=== PATIENT | female | born 1985 | race Caucasian/White ===

== ENCOUNTER 2017-02-12 09:40 | Emergency (ER) | payer BC ==
--- NOTE | 2017-02-12 11:13 | UC ---
Throat Pain/Nasal Loy HPI - HPI Summary HPI Summary: ONSET OF FEVER 101.4 YESTERDAY ALONG WITH CHILLS, FATIGUE, DIZZINESS, BODY ACHES AND OVERALL MALAISE. HAS ST AND PAIN WITH SWALLOWING. OF NOTE HAD SPONTANEOUS MISCARRIAGE 11 DAYS AGO AND IS STILL HAVING ABDOMINAL CRAMPING AND SPOTTING. SERUM HCG WAS DRAWN INITIALLY TO DETERMINE DOWNWARD TREND BUT WAS NOT FOLLOWED TO ZERO. - History of Current Complaint Chief Complaint: UCGeneralIllness Stated Complaint: FEVER SINUS ISSUE Time Seen by Provider: 02/12/17 10:46 Hx Obtained From: Patient Hx Last Menstrual Period: 01/08/17 Onset/Duration: Gradual Onset, Lasting Days, Still Present Severity: Moderate Pain Intensity: 9 Pain Scale Used: 0-10 Numeric Cough: None Associated Signs & Symptoms: Positive: Fever - Allergies/Home Medications Allergies/Adverse Reactions: Allergies Allergy/AdvReac Type Severity Reaction Status Date / Time Acetaminophen [From Vicodin] Allergy Unknown Verified 03/19/16 06:32 Reaction Details Azithromycin Allergy Unknown Verified 03/19/16 06:32 [From Zithromax Z-Ambrocio] Reaction Details Hydrocodone [From Vicodin] Allergy Unknown Verified 03/19/16 06:32 Reaction Details PMH/Surg Hx/FS Hx/Imm Hx Endocrine History Of: Denies: Diabetes, Thyroid Disease Cardiovascular History Of: Denies: Cardiac Disorders, Hypertension Respiratory History Of: Denies: COPD, Asthma GI/ History Of: Denies: Ulcer Psychological History Of: Reports: Anxiety - NO MEDS - Surgical History Surgical History: Yes Surgery Procedure, Year, and Place: C SECTION X2, 2010, 2012, [facility]. SINUS , 12/2015, [facility]. WISDOM TEETH 2009 r knee scoped - Family History Known Family History: Positive: Hypertension - Social History Alcohol Use: None Substance Use Type: None Smoking Status (MU): Never Smoked Tobacco Have You Smoked in the Last Year: No Review of Systems Constitutional: Fever, Chills, Fatigue ENT: Sore Throat Respiratory: Negative Cardiovascular: Negative Gastrointestinal: Abdominal Pain Genitourinary: Other - VAGINAL SPOTTING Neurological: Other - DIZZY All Other Systems Reviewed And Are Negative: Yes Physical Exam Triage Information Reviewed: Yes Appearance: No Pain Distress, Well-Nourished, Ill-Appearing - MILDLY Vital Signs: Initial Vital Signs Temp 98.7 F 02/12/17 09:51 Pulse 100 02/12/17 09:51 Resp 18 02/12/17 09:51 BP 120/64 02/12/17 09:51 Pulse Ox 100 02/12/17 09:51 Eyes: Positive: Conjunctiva Clear ENT: Positive: Hearing grossly normal, Pharyngeal erythema, TMs normal Neck: Positive: Supple, Tenderness @ - SPFL CERVICAL LAD, Enlarged Nodes @ - SPFL CERVICAL LAD Respiratory Exam: Normal Cardiovascular: Positive: Tachycardia Abdomen Description: Positive: Soft, Other: - DIFFUSE MILD TENDERNESS. NO REBOUND OR RIGIDITY Musculoskeletal: Positive: No Edema Neurological: Positive: Alert Psychological: Positive: Age Appropriate Behavior Skin: Negative: rashes Diagnostics - Laboratory Diagnostic Studies Completed/Ordered: RAPID STREP POSITIVE - Radiology TRANSVAGINAL US Xray Interpretation: Positive (See Comments) - SMALL AMOUNT OF FLUID IN THE ENDOMETRIAL CAVITY. 1.9 CM LEFT OVARIAN CYST. Radiology Interpretation Completed By: Radiologist Throat Pain/Nasal Course/Dx - Differential Dx/Diagnosis Provider Diagnoses: STREP PHARYNGITIS Discharge - Discharge Plan Condition: Stable Disposition: HOME Prescriptions: Amoxicillin CAP* [Amoxicillin 500 MG CAP*] 1,000 mg PO Q12H #38 cap Patient Education Materials: Strep Throat (ED) Referrals: Moy Wilder DO [Primary Care Provider] - If Needed Additional Instructions: US SHOWED SMALL AMOUNT OF FLUID IN THE ENDOMETRIAL CAVITY AND A 1.9 CM LEFT OVARIAN CYST. NO ACUTE INTERVENTION REQUIRED AT PRESENT. RAPID STREP POSITIVE. TAKE AMOXICILLIN FOR THE FULL 10 DAYS. OTC CHLORASEPTIC OR CEPACOL LOZENGES FOR SORE THROAT NEEDED ONCE SYMPTOMS RESOLVED - NEW TOOTHBRUSH DO NOT SHARE FOOD, DRINK, UTENSILS
[2017-02-12] MEDS ORDERED: Amoxicillin CAP* 500 MG PO ONE (11:24)
[2017-02-12 12:00] VITALS: BP 112/71
--- NOTE | 2017-02-12 12:17 | RAD ---
INDICATION: Recent miscarriage. Fever and cramps. COMPARISON: Transvaginal sonogram October 31, 2016 TECHNIQUE: Longitudinal and transverse transvaginal scans of the pelvis were obtained. FINDINGS: Uterus: The uterus is normal in size. There are no focal masses. The uterus measures 9.5 x 4.0 x 5.4 cm. Endometrial thickness: The endometrial thickness is measured at 0.6 cm. There is a small amount of fluid in the endometrial cavity.. Free fluid: There is no significant free fluid . Ovaries: The ovaries are normal in size. The right ovary measures 2.8 x 1.7 x 3.4 cm. The left ovary measures 3.7 x 1.9 x 3.1 cm. There are multiple small follicles in each ovary with a dominant 1.7 cm cyst which is likely a functional cyst Doppler interrogation demonstrates flow to each ovary. Other: None IMPRESSION: SMALL AMOUNT OF FLUID IN THE ENDOMETRIAL CAVITY. 1.9 CM LEFT OVARIAN CYST.
== END 2017-02-12 12:56 | disposition home or self-care (01) ==
LOC: UCEAST 09:40
DX: J02.0 Streptococcal pharyngitis (principal); N83.202 Unspecified ovarian cyst, left side; Z32.02 Encounter for pregnancy test, result negative; F41.9 Anxiety disorder, unspecified; Z88.6 Allergy status to analgesic agent; Z88.1 Allergy status to other antibiotic agents; Z88.5 Allergy status to narcotic agent
CPT/HCPCS: 76830; 84702; 87651; 99212; A9270-GY; G0463

== ENCOUNTER → 2017-06-21 19:36 | Emergency (ER) | payer BC ==
[2017-06-21 20:10] LABS: Hematocrit 38 % (35-47); Hemoglobin 12.6 g/dl (12.0-16.0); Mean Corpuscular HGB Conc 34 g/dl (31-36); Mean Corpuscular Hemoglobin 29 pg (27-31); Mean Corpuscular Volume 85 fL (80-97); Mean Platelet Volume 8 um3 (7.4-10.4); Red Cell Distribution Width 12 % (10.5-15); White Blood Count 7.5 10^3/ul (3.5-10.8)
[2017-06-21 20:23] LABS: Albumin 4.5 g/dL (3.2-5.2); BUN/Creatinine Ratio 11.6 (8-20); Calcium 9.7 mg/dL (8.6-10.3); EGFR African American 128.5 (>60); EGFR Non-African American 99.9 (>60); Globulin 3.3 g/dL (2-4); Potassium 3.8 mmol/L (3.5-5.0); Total Bilirubin 0.4 mg/dL (0.2-1.0); Total Protein 7.8 g/dL (6.4-8.9)
[2017-06-21 20:33] LABS: Urine Bacteria 1+ (Absent); Urine Bilirubin Negative (Negative); Urine Glucose Negative (Negative); Urine Nitrite Negative (Negative)
--- NOTE | 2017-06-21 21:33 | RAD ---
INDICATION: Early with pain COMPARISON: None TECHNIQUE: Transvaginal scans were obtained of the bursa evaluation FINDINGS: There is endometrial reactive change with an oval hypoechoic structure which could represent a very early gestational sac or this could represent a pseudogestational sac. There is no evidence of a yolk sac and there is no pole. The right ovary measures 3.8 x 2.4 x 2.7 cm and contains multiple small follicles in addition to a probable complex exophytic follicle measuring 1.2 cm. The left ovary measures 4.2 x 3.0 x 2.5 cm. Medial to the left ovary is a complex mass measuring 2.0 x 2.2 x 1.3 cm. This could represent an ectopic . There is no significant vascularity and there is no significant free fluid IMPRESSION: NO DEFINITIVE INTRAUTERINE GESTATION. THE IMAGING FINDINGS MUST BE CORRELATED WITH THE CLINICAL PRESENTATION AND WITH THE SERIAL BETA-HCG VALUES. THE SONOGRAPHIC FINDINGS ARE TECHNICALLY INDETERMINANT YET ARE SUSPICIOUS FOR A 2 CM ECTOPIC INFERIOR AND MEDIAL TO THE LEFT OVARY. SUGGEST OBSTETRIC REFERRAL. Findings discussed with emergency department
[2017-06-21 22:41] VITALS: BP 113/66
--- NOTE | 2017-06-22 10:42 | ED ---
Radha Mccoy Thomas, scribed for Nicole Tobias MD on 06/21/17 at 1956 . GI/ HPI - HPI Summary HPI Summary: The pt is a 31 y/o F presenting to the ED c/o lower abd pressure and bleeding that started today at 17:30. This lower abd pressure is aggravated by sitting down. She notes a pressure sensation when she urinates. She has used one pad today since the bleeding started. She had a positive home test about two weeks ago. [facility] 05/12/17. G=4, P=2, A=1. She had two normal pregnancies with caesarean delivery and one early miscarriage. She had heavy vaginal bleeding six days ago and saw her doctor of nurse anesthesia five days ago. Her HCG measured five days ago was 98 and measured three days ago was in the 200s (it had doubled). The bleeding was red six days ago and it was light brown between three and five days ago. She states she did not pass any "tissue". She had an US performed yesterday that did not show an IUP, but the study was limited by low HCG levels. Pt denies hematuria, N/V. She is on vitamins and probiotic. She stopped taking magnesium when she found out she was . She says she is probably Rh+. - History of Current Complaint Chief Complaint: EDOBProblems Time Seen by Provider: 06/21/17 19:50 Stated Complaint: 5 WKS PREG/SHARP PELVIC PAIN/BLEEDING Hx Obtained From: Patient Hx Last Menstrual Period: 01/08/17 Onset/Duration: Started Hours Ago - onset today at 17:30., Atraumatic, Still Present Timing: Constant, Lasting Hours Severity: Moderate Current Severity: Mild Vaginal Bleeding Description: Brownish-Red Number of Pads per Hour: 0 - less than one Pain Intensity: 0 Location of Pain: RLQ, LLQ, Suprapubic Additional Location for Females: Uterus Pain Characteristics: Pressure - She has a pressure sensation in her lower abd Associated Signs and Symptoms: Positive: Other: - Pressure sensation when she urinates; NEGATIVE: hematuria. Negative: Nausea, Vomiting, Fever Additional Signs & Symptoms: Positive: Positive Test Aggravating Factor(s): Voiding - when she voids, she notes a pressure sensation , Sitting - sitting aggravates her lower abd pressure Alleviating Factor(s): Nothing - Allergy/Home Medications Allergies/Adverse Reactions: Allergies Allergy/AdvReac Type Severity Reaction Status Date / Time Acetaminophen [From Vicodin] Allergy Unknown Verified 03/19/16 06:32 Reaction Details Azithromycin Allergy Unknown Verified 03/19/16 06:32 [From Zithromax Z-Ambrocio] Reaction Details Hydrocodone [From Vicodin] Allergy Unknown Verified 03/19/16 06:32 Reaction Details PMH/Surg Hx/FS Hx/Imm Hx Previously Healthy: No Endocrine/Hematology History: Denies: Hx Diabetes, Hx Thyroid Disease Cardiovascular History: Denies: Hx Hypertension, Other Cardiovascular Problems/Disorders Respiratory History: Denies: Hx Asthma, Hx Chronic Obstructive Pulmonary Disease (COPD), Other Respiratory Problems/Disorders GI History: Reports: Hx Gastroesophageal Reflux Disease, Hx Hiatal Hernia Denies: Hx Ulcer, Other GI Disorders Musculoskeletal History: Denies: Other Musculoskeletal History Sensory History: Denies: Hx Contacts or Glasses, Hx Hearing Aid Opthamlomology History: Denies: Hx Contacts or Glasses Neurological History: Denies: Other Neuro Impairments/Disorders Psychiatric History: Reports: Hx Anxiety - NO MEDS - Surgical History Surgery Procedure, Year, and Place: C SECTION X2, 2010, 2012, [facility] SINUS , 12/2015, [facility]. WISDOM TEETH 2009 r knee scoped Hx Anesthesia Reactions: No Infectious Disease History: No Infectious Disease History: Denies: Hx Clostridium Difficile, Hx Hepatitis, Hx Human Immunodeficiency Virus (HIV), Hx of Known/Suspected MRSA, Hx Shingles, Hx Tuberculosis, Hx Known/ Suspected VRE, Hx Known/Suspected VRSA, History Other Infectious Disease, Traveled Outside the in Last 30 Days - Family History Known Family History: Positive: Hypertension, Other - Lung cancer - Social History Lives: With Family Alcohol Use: None Hx Substance Use: No Substance Use Type: Reports: None Hx Tobacco Use: No Smoking Status (MU): Never Smoked Tobacco Have You Smoked in the Last Year: No Review of Systems Constitutional: Negative Cardiovascular: Negative Respiratory: Negative Positive: Other - Lower abd pressure. Negative: Vomiting, Nausea Positive: other - Vaginal bleeding onset today at 17:30, pressure sensation when urinates. Negative: hematuria Neurological: Negative Psychological: Normal All Other Systems Reviewed And Are Negative: Yes Physical Exam Triage Information Reviewed: Yes Vital Signs On Initial Exam: Initial Vitals Temp Pulse Resp BP Pulse Ox 97.9 F 91 18 141/88 100 09/30/17 19:38 06/21/17 19:38 06/21/17 19:38 06/21/17 19:38 06/21/17 19:38 Vital Signs Reviewed: Yes Appearance: Positive: Well-Appearing, No Pain Distress - She presents to ED for vaginal bleeding but no pain, only low abd pressure., Well-Nourished Skin: Positive: Warm, Skin Color Reflects Adequate Perfusion Head/Face: Positive: Normal Head/Face Inspection Eyes: Positive: Conjunctiva Clear ENT: Positive: Normal ENT inspection Neck: Positive: Supple Respiratory/Lung Sounds: Positive: Clear to Auscultation, Breath Sounds Present , Other - No respiratory distress Cardiovascular: Positive: RRR, Pulses are Symmetrical in both Upper and Lower Extremities, Other - Brisk cap refill. Negative: Murmur, Rub Abdomen Description: Positive: Nontender, Soft Bowel Sounds: Positive: Present Pelvic Exam: Positive: external exam normal, no masses, blood - There is a small amount of brown red vaginal blood, other - Cervix is long as closed. Cultures were sent. Uterus is approximately 6 weeks in size by palpation, just palpable above pelvic brim. No adnexal mass palpated.. Negative: mass, tender adnexa Musculoskeletal: Positive: Strength/ROM Intact Neurological: Positive: Sensory/Motor Intact, Alert, Oriented to Person Place, Time, Facial Symmetry, Speech Normal Psychiatric: Positive: Normal Diagnostics - Vital Signs Vital Signs Temp Pulse Resp BP Pulse Ox 06/21/17 19:38 97.9 F 91 18 141/88 100 - Laboratory Lab Results: Lab Results 06/21/17 06/21/17 06/21/17 Range/Units 19:58 19:58 19:58 WBC 7.5 (3.5-10.8) 10^3/ul RBC 4.40 (4.0-5.4) 10^6/ul Hgb 12.6 (12.0-16.0) g/dl Hct 38 (35-47) % MCV 85 (80-97) fL MCH 29 (27-31) pg MCHC 34 (31-36) g/dl RDW 12 (10.5-15) % Plt Count 235 (150-450) 10^3/ul MPV 8 (7.4-10.4) um3 Neut % (Auto) 61.9 (38-83) % Lymph % (Auto) 28.8 (25-47) % [place] % (Auto) 8.1 (1-9) % Eos % (Auto) 0.7 (0-6) % Baso % (Auto) 0.5 (0-2) % Absolute Neuts (auto) 4.7 (1.5-7.7) 10^3/ul Absolute Lymphs (auto) 2.2 (1.0-4.8) 10^3/ul Absolute Monos (auto) 0.6 (0-0.8) 10^3/ul Absolute Eos (auto) 0.1 (0-0.6) 10^3/ul Absolute Basos (auto) 0 (0-0.2) 10^3/ul Absolute Nucleated RBC 0 10^3/ul Nucleated RBC % 0 INR (Anticoag Therapy) 1.00 (0.89-1.11) APTT 29.7 (26.0-36.3) seconds Sodium 136 (133-145) mmol/L Potassium 3.8 (3.5-5.0) mmol/L Chloride 102 (101-111) mmol/L Carbon Dioxide 28 (22-32) mmol/L Anion Gap 6 (2-11) mmol/L BUN 8 (6-24) mg/dL Creatinine 0.69 (0.51-0.95) mg/dL Est GFR ( Amer) 128.5 (>60) Est GFR (Non-Af Amer) 99.9 (>60) BUN/Creatinine Ratio 11.6 (8-20) Glucose 96 (70-100) mg/dL Lactic Acid (0.5-2.0) mmol/L Calcium 9.7 (8.6-10.3) mg/dL Total Bilirubin 0.40 (0.2-1.0) mg/dL AST 14 (13-39) U/L ALT 8 (7-52) U/L Alkaline Phosphatase 33 L (34-104) U/L Total Protein 7.8 (6.4-8.9) g/dL Albumin 4.5 (3.2-5.2) g/dL Globulin 3.3 (2-4) g/dL Albumin/Globulin Ratio 1.4 (1-3) Beta HCG, Quant 385.17 mIU/mL Urine Color Urine Appearance Urine pH (5-9) Ur Specific [place] (1.010-1.030) Urine Protein (Negative) Urine Ketones (Negative) Urine Blood (Negative) Urine Nitrate (Negative) Urine Bilirubin (Negative) Urine Urobilinogen (Negative) Ur Leukocyte Esterase (Negative) Urine WBC (Auto) (Absent) Urine RBC (Auto) (Absent) Ur Squamous Epith Cells (Absent) Urine Bacteria (Absent) Urine Glucose (Negative) Blood Type Antibody Screen 06/21/17 06/21/17 06/21/17 Range/Units 19:58 19:58 20:17 WBC (3.5-10.8) 10^3/ul RBC (4.0-5.4) 10^6/ul Hgb (12.0-16.0) g/dl Hct (35-47) % MCV (80-97) fL MCH (27-31) pg MCHC (31-36) g/dl RDW (10.5-15) % Plt Count (150-450) 10^3/ul MPV (7.4-10.4) um3 Neut % (Auto) (38-83) % Lymph % (Auto) (25-47) % [place] % (Auto) (1-9) % Eos % (Auto) (0-6) % Baso % (Auto) (0-2) % Absolute Neuts (auto) (1.5-7.7) 10^3/ul Absolute Lymphs (auto) (1.0-4.8) 10^3/ul Absolute Monos (auto) (0-0.8) 10^3/ul Absolute Eos (auto) (0-0.6) 10^3/ul Absolute Basos (auto) (0-0.2) 10^3/ul Absolute Nucleated RBC 10^3/ul Nucleated RBC % INR (Anticoag Therapy) (0.89-1.11) APTT (26.0-36.3) seconds Sodium (133-145) mmol/L Potassium (3.5-5.0) mmol/L Chloride (101-111) mmol/L Carbon Dioxide (22-32) mmol/L Anion Gap (2-11) mmol/L BUN (6-24) mg/dL Creatinine (0.51-0.95) mg/dL Est GFR ( Amer) (>60) Est GFR (Non-Af Amer) (>60) BUN/Creatinine Ratio (8-20) Glucose (70-100) mg/dL Lactic Acid 0.9 (0.5-2.0) mmol/L Calcium (8.6-10.3) mg/dL Total Bilirubin (0.2-1.0) mg/dL AST (13-39) U/L ALT (7-52) U/L Alkaline Phosphatase (34-104) U/L Total Protein (6.4-8.9) g/dL Albumin (3.2-5.2) g/dL Globulin (2-4) g/dL Albumin/Globulin Ratio (1-3) Beta HCG, Quant mIU/mL Urine Color Yellow Urine Appearance Cloudy Urine pH 6.0 (5-9) Ur Specific [place] 1.015 (1.010-1.030) Urine Protein Negative (Negative) Urine Ketones Negative (Negative) Urine Blood 3+ H (Negative) Urine Nitrate Negative (Negative) Urine Bilirubin Negative (Negative) Urine Urobilinogen Negative (Negative) Ur Leukocyte Esterase 1+ H (Negative) Urine WBC (Auto) 1+(6-10/hpf) H (Absent) Urine RBC (Auto) Trace(0-2/hpf) (Absent) Ur Squamous Epith Cells Present H (Absent) Urine Bacteria 1+ H (Absent) Urine Glucose Negative (Negative) Blood Type A Positive Antibody Screen Negative Result Diagrams: 06/21/17 19:58 06/21/17 19:58 Lab Statement: Any lab studies that have been ordered have been reviewed, and results considered in the medical decision making process. - Additional Comments Diagnostic Additional Comments: US Transvaginal. Interpreted by radiologist. Impression: NO DEFINITIVE INTRAUTERINE GESTATION. THE IMAGING FINDINGS MUST BE CORRELATED WITH THE CLINICAL PRESENTATION AND WITH THE SERIAL BETA-HCG VALUES. THE SONOGRAPHIC FINDINGS ARE TECHNICALLY INDETERMINANT YET ARE SUSPICIOUS FOR A 2 CM ECTOPIC INFERIOR AND MEDIAL TO THE LEFT OVARY. SUGGEST OBSTETRIC REFERRAL. ED physician has read this report and agrees. Re-Evaluation - Re-Evaluation First Eval Re-Evaluation Time: 22:18 Change: Unchanged Comment: At re-evaluation at 22:18, there is still diffuse lower abd pain described as cramping. There is no increase in bleeding. Second Eval Re-Evaluation Time: 22:36 Change: Unchanged Comment: I returned to the patient's room to perform a pelvic exam as outlined in the physical exam. Third Eval Re-Evaluation Time: 22:43 Change: Unchanged Comment: Blood pressure is now at 113/66. GIGU Course/Dx - Course Course Of Treatment: Allergies noted. High blood pressure noted that returned to normal level without treatment during ED course. Patients medications reviewed this visit. Assessment/Plan: The patient is a 31 y/o F with LNMP 05/12/17 presenting with lower abd pressure and vaginal bleeding. At re-evaluation at 22:18, there is still diffuse lower abd pain described as cramping. There is no increase in bleeding. The patient is a 31 y/o F with LNMP 05/12/17 presenting with lower abd pressure and vaginal bleeding. At re-evaluation at 22:18, there is still diffuse lower abd pain described as cramping. There is no increase in bleeding. In the ED, Bloodwork was obtained. BHCG is 385. UA shows 3+ blood, 1+ leukocyte esterase, 1+ WBC, and 1+ bacteria. US Transvaginal shows NO DEFINITIVE INTRAUTERINE GESTATION. THE IMAGING FINDINGS MUST BE CORRELATED WITH THE CLINICAL PRESENTATION AND WITH THE SERIAL BETA-HCG VALUES. THE SONOGRAPHIC FINDINGS ARE TECHNICALLY INDETERMINANT YET ARE SUSPICIOUS FOR A 2 CM ECTOPIC INFERIOR AND MEDIAL TO THE LEFT OVARY. SUGGEST OBSTETRIC REFERRAL. ED physician has reviewed this report and agrees. Patients medication reviewed this visit. Blood pressure noted. I consulted at 21:[address] Antonio, radiology, who informs me that he cannot exclude ectopic . I consulted with CHRISTIN Matute, at 21:30 regarding patient care. Discharge blood pressure was 113/66. Patient will be discharged with close follow up by OB on 06/23/17. Pt is agreeable with this plan. - Diagnoses Differential Diagnoses - Female: Ectopic , , Threatened , Urinary Tract Infection Provider Diagnoses: Vaginal bleeding in patient at less than 20 weeks gestation - Physician Notifications Discussed Care Of Patient With: David Antonio Time Discussed With Above Provider: 21:25 Instructed by Provider To: Other - I consulted at 21:[address] Antonio, radiology, who informs me that he cannot exclude ectopic . I consulted with CHRISTIN Matute, at 21:30 regarding patient care, who tells me that the patient can be safely discharged with close follow up on June 23. Discharge - Discharge Plan Condition: Stable Disposition: HOME Patient Education Materials: Ectopic (ED), First Trimester Vaginal Bleed (ED) Referrals: Moy Wilder DO [Primary Care Provider] - Additional Instructions: CLOSE FOLLOW UP WITH OBGYN ON FridayJUNE 23 to monitor for possible ectopic . We gave you a copy of your labs and ultrasound report from [facility]. Return to the emergency department for any new or worsening symptoms. The documentation as recorded by the Radha galvan Thomas accurately reflects the service I personally performed and the decisions made by me, Nicole Tobias MD.
== END | disposition home or self-care (01) ==
LOC: ED 19:36
DX: O46.92 Antepartum hemorrhage, unspecified, second trimester (principal); Z3A.20 20 weeks gestation of pregnancy; R10.30 Lower abdominal pain, unspecified
CPT/HCPCS: 36415; 76817; 80053; 81003; 81015; 83605; 84702; 85025; 85610; 85730; 86850; 86900; 86901; 87086; 87480; 87491; 87510; 87591; 99282

== ENCOUNTER 2018-08-06 06:13 | Inpatient (IN) | payer BC ==
[~2018-08-06 06:13] MED LIST: ceFOXitin 2 GM IVPREMIX* 2 GM/50 ML BAG IVPB SCH
[2018-08-06] MEDS ORDERED: OXYTOCIN* 10 UNITS/ML 1 ML VIAL ONE (07:56)
[2018-08-06] MEDS ORDERED: Ketorolac INJ* 30 MG/ML 1 ML VIAL ONE (07:56)
[2018-08-06] MEDS ORDERED: Ondansetron INJ* 2 MG/ML VIAL ONE (07:56)
[2018-08-06] MEDS ORDERED: Bupivacaine-MPF SPINAL* 7.5 MG/ML - 2ML AMP ONE (07:59)
[2018-08-06] MEDS ORDERED: Lidocaine 2% PF * 5 ML VIAL ONE (07:59)
[2018-08-06] MEDS ORDERED: HYDROmorphone INJ1* 1 MG/ML SYRINGE IV PRN (08:09)
[2018-08-06] MEDS ORDERED: DiMENhydriNATE IV* 50 MG/ML VIAL IV PUSH PRN (08:09)
[2018-08-06] MEDS ORDERED: Acetaminophen IV 1GM/100ML * 1,000 MG/100 ML VIAL IVPB ONE (08:09)
[2018-08-06] MEDS ORDERED: Naloxone* 0.4 MG/ML 1 ML VIAL IV PRN (08:09)
[2018-08-06] MEDS ORDERED: Dibucaine 1% 28.35 GM TUBE PR PRN (12:25)
[2018-08-06] MEDS ORDERED: Zolpidem TAB* 5 MG PO PRN (12:25)
[2018-08-06] MEDS ORDERED: Witch Hazel PAD* JAR TOPICAL PRN (12:25)
[2018-08-06] MEDS ORDERED: Glycerin ADULT SUPP PR PRN (12:25)
[2018-08-06] MEDS ORDERED: oxyCODONE/Acetamin 5/325 MG* TAB PO PRN (12:25)
[2018-08-06] MEDS ORDERED: Acetaminophen TAB* 325 MG PO PRN (12:25)
[2018-08-06] MEDS ORDERED: oxyCODONE TAB* 5 MG TAB PO ONE (12:40)
[2018-08-06] MEDS: Simethicone TAB* 80 MG TAB.CHEW PO SCH ×3 (12:50→20:56)
[2018-08-06] MEDS: Docusate CAP* 100 MG PO SCH ×2 (13:40→20:56)
[2018-08-06] MEDS: Ibuprofen TAB* 600 MG PO PRN ×2 (15:34→22:26)
[2018-08-06] MEDS: oxyCODONE/Acetamin 5/325 MG* TAB PO PRN ×2 (16:35→20:56)
[2018-08-07] MEDS: Ibuprofen TAB* 600 MG PO PRN ×3 (04:26→18:49)
[2018-08-07] MEDS: oxyCODONE/Acetamin 5/325 MG* TAB PO PRN ×5 (04:27→23:31)
--- NOTE | 2018-08-07 05:34 | OP ---
DATE OF OPERATION: 08/06/18 - ROOM #116 DATE OF : 87 SURGEON: Adelaide Myers MD CELL POURER: Dr. Lillie Barillas. ANESTHESIOLOGIST: Dr. Mendoza. ANESTHESIA: Spinal. PRE-OP DIAGNOSIS: A 39 and 0/7 weeks intrauterine , desires repeat section. POST-OP DIAGNOSIS: A 39 and 0/7 weeks intrauterine , desires repeat section, delivered. OPERATIVE PROCEDURE: Repeat low transverse section. ESTIMATED BLOOD LOSS: 500 cc. URINE OUTPUT: 500 cc. FLUIDS: 1600 cc of crystalloid. SPECIMEN: None. DRAINS: Zero. FINDINGS: Revealed a vertex female infant with Apgars 9 at 1 minute, 9 at 5 minutes, 8 pounds 7 ounces, normal-appearing tubes and ovaries bilaterally, normal- appearing three-vessel cord and placenta, manual, intact. COMPLICATIONS: None apparent. DISPOSITION: Stable to recovery room. DESCRIPTION OF PROCEDURE: The patient was placed in dorsal lithotomy position. Abdomen was prepped and draped in a sterile standard fashion. The patient was identified with universal protocol. Anesthesia was tested to appropriate level. An incision was made with a scalpel 2 fingerbreadths above the pubic symphysis. This was carried through down to the fascia. The fascia was scored in the midline and then extended laterally and superiorly using curved Barksdale scissors. The rectus muscle was with blunt and sharp dissection from the rectus fascia. The peritoneum was then entered bluntly. The lower uterine segment was identified. Bladder blade was inserted and the lower uterine segment was tented up with Allis. Incision was made down through to the membrane. The incision was extended laterally and superiorly using bandage scissors. Amniotomy was then created for clear fluid. An attempt x2 to deliver the head was made. At that point, a vacuum was applied and head was delivered. Anterior, then posterior shoulders delivered. No nuchal cord and no meconium was noticed. Cord was allowed to pulse for greater than a minute. Cord was then doubly clamped, cut, and infant was handed off to awaiting soil conservation technician. Appropriate cord blood was then obtained. Placenta was then manually extracted, noted to be intact and had 3-vessel cord. The uterus was exteriorized. Tubes and ovaries noted to have a normal appearance. The cavity was wiped clean with moist laparotomy sponge. No membranes or placental tissue was within the uterine cavity. At that point, the uterus was then reapproximated in 2 layers, first layer running 0 Vicryl locked, second layer running imbricated 0 Vicryl. Tubes and ovaries noted to have a normal appearance. Uterus was returned intraabdominally. Colic gutters were lavaged. Hemostasis was assured. At that point, the peritoneum was then reapproximated. There was a small omental adhesion noted at the anterior surface of the peritoneum. This was clamped with Jazmine's, transected sharply, and suture ligated using 3-0 Polysorb. Hemostasis was noted at the lower hysterotomy site and this adhesion lysis. The peritoneum was then reapproximated using 3-0 Vicryl in a running fashion. Prefascial area was visualized. Hemostasis assured with Bovie coagulation. The fascia itself was then reapproximated with 0 Vicryl x2 in a running fashion. The subcu was lavaged. Hemostasis was assured with Bovie coagulation and the skin was then reapproximated with 4-0 Monocryl in a subcuticular fashion. Mastisol and Steris were applied. All sponge, instrument, and blade counts were correct throughout the case. The patient tolerated the procedure well and went to recovery room in stable condition. [id number]/[facility] #: [id number] FELIPE
[2018-08-07 08:13] LABS: ABS Basophils 0 10^3/ul (0-0.2); ABS Eosinophils 0 10^3/ul (0-0.6); ABS Lymphocytes 1.4 10^3/ul (1.0-4.8); ABS Monocytes 0.9 10^3/ul (0-0.8); ABS Neutrophils 8.4 10^3/ul (1.5-7.7); ABS Nucleated RBC 0 10^3/ul; Eosinophil % 0.3 % (0-6); Hematocrit 33 % (35-47); Hemoglobin 11.2 g/dl (12.0-16.0); Lymphocyte % 13.3 % (25-47); Mean Corpuscular HGB Conc 34 g/dl (31-36); Mean Corpuscular Hemoglobin 30 pg (27-31); Mean Corpuscular Volume 88 fL (80-97); Mean Platelet Volume 8.5 fL (7.4-10.4); Nucleated Red Blood Cells % 0; Platelet Count 126 10^3/ul (150-450); Red Blood Count 3.73 10^6/ul (4.00-5.40); Red Cell Distribution Width 14 % (10.5-15); White Blood Count 10.8 10^3/ul (3.5-10.8)
[2018-08-07] MEDS ORDERED: Ferrous Gluconate TAB* 324 MG TAB PO SCH (09:00)
[2018-08-07] MEDS: Docusate CAP* 100 MG PO SCH ×3 (09:25→21:48)
[2018-08-07] MEDS: Simethicone TAB* 80 MG TAB.CHEW PO SCH ×4 (09:25→21:48)
[2018-08-07] MEDS ORDERED: diPHENhydraMINE PO* 25 MG PO ONE (21:00)
[2018-08-07] MEDS ORDERED: diPHENhydraMINE PO* 25 MG ONE (21:45)
[2018-08-08] MEDS: Ibuprofen TAB* 600 MG PO PRN ×2 (02:48→09:10)
[2018-08-08] MEDS: Docusate CAP* 100 MG PO SCH (08:05)
[2018-08-08] MEDS: Simethicone TAB* 80 MG TAB.CHEW PO SCH (08:05)
[2018-08-08 08:31] VITALS: BP 111/65
== END 2018-08-08 12:30 | disposition home or self-care (01) | DRG 540 ==
LOC: MCHOB 06:13
PROVIDERS: ADMIT Obstetrics & Gynecology; ATTEND Obstetrics & Gynecology
PROC: 10D00Z1 Extraction of Products of Conception, Low, Open Approach (ICD-10-PCS; 2018-08-06)
PROC: 4A1HXCZ Monitoring of Products of Conception, Cardiac Rate, External Approach (ICD-10-PCS; principal; 2018-08-06 07:45)
DX: O34.211 Maternal care for low transverse scar from previous cesarean delivery (principal); Z3A.39 39 weeks gestation of pregnancy; Z37.0 Single live birth; Z88.1 Allergy status to other antibiotic agents; Z88.5 Allergy status to narcotic agent
CPT/HCPCS: 36415; 85025; A9270-GY; J0694; J1885; J2405; J2590